=== PATIENT | female | born 1945 | race Two or more races ===

== ENCOUNTER 2018-11-15 12:38 | Inpatient (IN) | payer MEDICARE, BC ==
[~2018-11-15] VITALS: Ht 167.6 cm; Wt 101.8 kg
[2018-11-15 14:30] VITALS: BP 127/85
[2018-11-15] MEDS ORDERED: MAGNESIUM HYDROXIDE 2,400 MG/30 ML ORAL.SUSP. PO PRN (15:00)
[2018-11-15] MEDS ORDERED: METHYL SALICYLATE/MENTHOL TOPICAL OINTMENT 29GM TUBE. TP PRN (15:00)
[2018-11-15] MEDS ORDERED: MAG HYDROX/AL HYDROX/SIMETH 30 ML ORAL.SUSP PO PRN (15:00)
[2018-11-15] MEDS ORDERED: ACETAMINOPHEN 325 MG TABLET PO PRN (15:00)
[2018-11-15] MEDS ORDERED: INSU100I16 SQ (16:49)
[2018-11-15] MEDS ORDERED: BIOTIN ×2 (16:49)
[2018-11-15] MEDS ORDERED: LEVO200T5 PO (16:49)
[2018-11-15] MEDS ORDERED: LACO200T PO (16:49)
[2018-11-15] MEDS ORDERED: DICL100G18 TP (16:49)
[2018-11-15] MEDS ORDERED: OLAN5TAB5 PO (16:49)
[2018-11-15] MEDS ORDERED: ASCORBIC ACID PO (16:49)
[2018-11-15] MEDS ORDERED: LOSA50TA86 PO (16:49)
[2018-11-15] MEDS ORDERED: EZET10TA18 PO (16:49)
[2018-11-15] MEDS ORDERED: ACET325T9 PO (16:49)
[2018-11-15] MEDS ORDERED: multivitamin gummies PO (16:49)
[2018-11-15] MEDS ORDERED: LEVE500T56 PO (16:49)
[2018-11-15] MEDS ORDERED: VITAMIN E PO (16:49)
[2018-11-15] MEDS ORDERED: CHOL10003 PO (16:49)
[2018-11-15] MEDS ORDERED: MEMA5TAB14 PO (16:49)
[2018-11-15] MEDS ORDERED: OMEP40CA5 PO (16:49)
[2018-11-15] MEDS ORDERED: CYAN10005 PO (16:49)
[2018-11-15] MEDS ORDERED: DIVA125C2 PO (16:49)
[2018-11-15] MEDS ORDERED: WARF-31 PO (16:49)
[2018-11-15] MEDS ORDERED: DICLOFENAC SODIUM 1% TOPICAL GEL 100GM TUBE. TP PRN (17:00)
[2018-11-15] MEDS ORDERED: WARFARIN 5 MG TABLET. PO ONE (17:30)
[2018-11-15] MEDS ORDERED: INSULN ASP PRT/INSULIN ASPART 300 UNITS/3 ML INSULN.PEN. SQ SCH (18:30)
[2018-11-15] MEDS: INSULIN NPH/REG INSULIN 70/30 300 UNITS/3 ML INSULN.PEN. SQ SCH (19:53)
[2018-11-15] MEDS ORDERED: INSULIN REGULAR 100 UNIT/ML 3ML VIAL. SQ ONE (20:30)
[2018-11-15] MEDS ORDERED: BIOTIN SCH (21:00)
[2018-11-15] MEDS: PANTOPRAZOLE 40 MG TABLET. PO SCH (21:07)
[2018-11-15] MEDS: LACOSAMIDE 50 MG TABLET PO SCH (21:07)
[2018-11-15] MEDS: levETIRAcetam 500 MG TABLET PO SCH (21:07)
--- NOTE | 2018-11-15 22:45 | PDOC ---
Exam Note: Nicholas Note: Please also refer to the separate dictated note~for this date of service dictated separately. Discussed the patient with Nursing staff reviewed the chart.~Reviewed interim history and current functioning. Reviewed vital signs,~Labs/ Radiology~and current medications noted below. Continue current treatment with the changes noted in the dictated addendum note Assessment: Vital Signs/I&O: Vital Signs Date Time Temp Pulse Resp B/P (MAP) Pulse Ox O2 Delivery O2 Flow Rate FiO2 11/15/18 14:30 98.4 75 16 127/85 (99) 98 Labs: Laboratory Tests Test 11/15/18 16:30 11/15/18 19:44 Glucose (Fingerstick) 318 mg/dL (70-99) H 492 mg/dL (70-99) H Current Medications: Meds: Current Medications Medications (Trade) Dose Ordered Sig/Alex Route PRN Reason Start Time Stop Time Status Last Admin Dose Admin Olanzapine (ZyPREXA ZYDIS) 5 mg QHS PO 11/15/18 21:00 11/15/18 21:07 Lacosamide (Vimpat) 200 mg BID PO 11/15/18 21:00 11/15/18 21:07 Levetiracetam (Keppra) 500 mg BID PO 11/15/18 21:00 11/15/18 21:07 Pantoprazole Sodium (Protonix) 40 mg QHS PO 11/15/18 21:00 11/15/18 21:07 Warfarin Sodium (Coumadin) 5 mg 1X WARF ONCE PO 11/15/18 17:30 11/15/18 17:31 DC 11/15/18 17:54 Insulin Human Isoph/Insulin Regular (HumuLIN 70/30) 20 units BIDWMEALS SQ 11/15/18 20:00 11/15/18 19:53 Insulin Human Regular (HumuLIN R VIAL) 20 unit 1X ONCE SQ 11/15/18 20:30 11/15/18 20:36 DC 11/15/18 20:54 I have reviewed the current psychotropics carefully including drug interactions. Risk benefit ratio favors no change other than as noted in my dictated progress note. Diagnosis: Problems: (1) Anxiety disorder (2) Impulse control disorder (3) Psychosis, atypical (4) Dementia, vascular, with delusions NETTA WHEELER MD Nov 15, 2018 22:45
[2018-11-16] MEDS: LEVOTHYROXINE 100 MCG TABLET PO SCH (04:40)
[2018-11-16] MEDS: ACETAMINOPHEN 325 MG TABLET PO PRN (04:40)
[2018-11-16 05:46] VITALS: BP 124/78
[2018-11-16 07:45] LABS: BASO % 1 % (0-3); EOS # 0.3 x10^3/uL (0.0-0.7); EOS % 8 % (0-3); HEMATOCRIT 36.1 % (36.0-47.0); HEMOGLOBIN 11.9 g/dL (12.0-15.5); LYMPH # 1.5 x10^3/uL (1.0-4.8); LYMPH % 45 % (24-48); MEAN CORPUSCULAR HEMOGLOBIN 30 pg (25-35); MEAN CORPUSCULAR HGB CONC 33 g/dL (31-37); MEAN CORPUSCULAR VOLUME 92 fL (79-100); MONO # 0.3 x10^3/uL (0.0-1.1); MONO % 8 % (0-9); NEUT # 1.3 x10^3uL (1.8-7.7); NEUT % 39 % (31-73); PLATELET COUNT 169 x10^3/uL (140-400); RED BLOOD COUNT 3.91 x10^6/uL (3.50-5.40); RED CELL DISTRIBUTION WIDTH 17.6 % (11.5-14.5); WHITE BLOOD COUNT 3.3 x10^3/uL (4.0-11.0)
[2018-11-16 08:01] LABS: ALBUMIN 3.5 g/dL (3.4-5.0); ALBUMIN/GLOBULIN RATIO 0.9 (1.0-1.7); CALCIUM 9.1 mg/dL (8.5-10.1); CREATININE 1.1 mg/dL (0.6-1.0); MAGNESIUM 1.8 mg/dL (1.8-2.4); POTASSIUM 3.9 mmol/L (3.5-5.1); TOTAL BILIRUBIN 0.5 mg/dL (0.2-1.0); TOTAL PROTEIN 7.3 g/dL (6.4-8.2)
[2018-11-16 08:12] LABS: VAL ACID 4 mcg/mL (50-100)
[2018-11-16] MEDS: MULTIVITAMIN with MINERAL TABLET. PO SCH (08:12)
[2018-11-16] MEDS: EZETIMIBE 10 MG TABLET PO SCH (08:12)
[2018-11-16] MEDS: LACOSAMIDE 50 MG TABLET PO SCH ×2 (08:12→20:19)
[2018-11-16] MEDS: CHOLECALCIFEROL (VITAMIN D3) 1,000 UNIT TABLET PO SCH (08:12)
[2018-11-16] MEDS: LOSARTAN 50 MG TABLET. PO SCH (08:14)
[2018-11-16] MEDS: levETIRAcetam 500 MG TABLET PO SCH ×2 (08:14→20:19)
[2018-11-16] MEDS: MEMANTINE 5 MG TABLET. PO SCH (08:14)
[2018-11-16] MEDS: CYANOCOBALAMIN (VITAMIN B-12) 1,000 MCG TABLET. PO SCH (08:14)
[2018-11-16] MEDS: INSULIN NPH/REG INSULIN 70/30 300 UNITS/3 ML INSULN.PEN. SQ SCH ×2 (08:15→17:08)
[2018-11-16] MEDS ORDERED: BIOTIN SCH (09:00)
[2018-11-16] MEDS ORDERED: ASCORBIC ACID PO SCH (09:00)
[2018-11-16] MEDS ORDERED: VITAMIN E PO SCH (09:00)
[2018-11-16] MEDS ORDERED: DIVALPROEX 125 MG CAP.SPRINK PO SCH (09:00)
[2018-11-16 10:33] LABS: THYROID STIM HORMONE (TSH) 6.609 uIU/mL (0.358-3.740)
[2018-11-16 13:09] LABS: THYROXINE 9.7 ug/dL (4.5-12.0)
[2018-11-16 14:37] LABS: BACTERIA,URINE 0 /HPF (0-FEW); BILIRUBIN,URINE NEG (NEG); CLARITY,URINE CLEAR; COLOR,URINE YELLOW; GLUCOSE,URINE 100 mg/dL (NEG); NITRITE,URINE NEG (NEG); RBC,URINE 0 /HPF (0-2); SQUAMOUS EPITHELIAL CELL,UR FEW /LPF; UROBILINOGEN,URINE 0.2 mg/dL (0.2 mg/dL); WBC,URINE OCC /HPF (0-4)
[2018-11-16 15:49] VITALS: BP 162/89
[2018-11-16] MEDS ORDERED: WARFARIN 7.5 MG TABLET. PO ONE (16:00)
[2018-11-16] MEDS: PANTOPRAZOLE 40 MG TABLET. PO SCH (20:20)
--- NOTE | 2018-11-16 21:22 | CONS ---
DATE OF CONSULTATION: 11/16/2018 ATTENDING PHYSICIAN: Vincent Mancia MD REASON FOR CONSULTATION: We are asked to see this patient on medical consultation. HISTORY OF PRESENT ILLNESS: The patient is a 73-year-old female transferred here yesterday from [facility]. She had been living at [facility]. She had fallen. She had mental status changes. She has underlying dementia. She had been on Coumadin. Her INR was elevated to 3.4. There is a longstanding history of dementia. She is on Coumadin for factor V Leiden deficiency. When I saw her today, she was reasonable. She had no acute distress. I reviewed her medications. She could not give me much more history. Most of the history is obtained from charts from [facility]. PAST MEDICAL HISTORY: Significant for asthma, major depression, type 2 diabetes mellitus, factor V Leiden deficiency with long-term anticoagulation, hearing loss, chickenpox, remote history of DVT, pulmonary embolus, hypertension, hyperlipidemia, hypothyroidism, noncompliance of medications, obstructive sleep apnea, peptic ulcer disease, seizure disorder, sigmoid diverticulosis, old stroke. PAST SURGICAL HISTORY: Includes nasal septal surgery repair, patellar surgery, cholecystectomy, rotator cuff repair, tubal ligation, and partial thyroidectomy. FAMILY HISTORY: Her sister has dementia, another sister had type 2 diabetes and heart disease. Mom and dad also had heart failure. Hypertension in brother, mother, and 2 sisters. SOCIAL HISTORY: She quit smoking 35 years ago. She does not use any alcohol at this time. CURRENT MEDICATIONS: Reviewed. She is scheduled for Tylenol, Mylanta, vitamin B12, Voltaren, Depakote, Zetia, Vimpat, Keppra, Synthroid, losartan, milk of magnesia, Namenda, multivitamin, Zyprexa, Protonix, vitamin D, and Coumadin. ALLERGIES: Multiple including MORPHINE, CRANBERRY GRAPEFRUIT EXTRACT, LATEX, LISINOPRIL CAUSING A COUGH, NICKEL, ZOCOR, LANTUS INSULIN and ACTOS, exact etiology is unclear. REVIEW OF SYSTEMS: Significant for the reports from [facility]. She denied any fevers, chills, or sweats. All other systems reviewed and determined to be negative. PHYSICAL EXAMINATION: GENERAL: When I saw her, this is a pleasant elderly female. She has bilateral orbital ecchymoses from recent trauma. VITAL SIGNS: Showed that she was afebrile. Her blood pressure from admission was 127/85, pulse 75 and regular. She was afebrile. HEENT: Head is without trauma. Pupils are reactive. Sclerae are nonicteric. There is bilateral orbital ecchymoses. There is also a small hematoma mid forehead. NECK: Supple. No bruits identified. LUNGS: Otherwise clear. CARDIOVASCULAR: Showed regular heart tones. No gallops, no murmurs. Peripheral pulses are palpable and full. ABDOMEN: Obese, protuberant. No organomegaly. Bowel sounds are hypoactive. EXTREMITIES: Showed no cyanosis, 2+ edema. NEUROLOGIC: Speech is fluent, focally intact. No deficits. PERTINENT LABORATORY DATA: Nonfasting blood sugar was recorded at 152. Creatinine is 1.1 mg/dL. Electrolytes are within range. Her hemoglobin was 11.9 g/dL with white count of 3300. Her INR measured this morning was therapeutic at 1.9. ASSESSMENT: 1. This 73-year-old female has underlying dementia. 2. Aggressive behavioral changes, which prompted the transfer here. 3. Recent fall with bilateral orbital ecchymoses. She is on chronic Coumadin therapy. 4. Factor V Leiden deficiency with previous blood clots in the legs and lungs. 5. Type 2 diabetes. 6. Essential hypertension. RECOMMENDATIONS: 1. The patient is stable from medical standpoint. 2. I would continue her Coumadin dosage with close monitoring of the INR. 3. I reviewed her medications. I would recommend that we discontinue the Voltaren given the propensity for internal bleeding while on Coumadin. 4. Continue other home meds including her seizure meds. 5. We should gladly follow along this nice patient during the course of her hospitalization. Thank you again for asking me to see this patient for medical consultation. SARAH HOLLIDAY MD DR: ITZ/allan JOB#: [id number] / [id number] JYOTI Palma MD
--- NOTE | 2018-11-16 22:55 | PDOC ---
Exam Note: Nicholas Note: Please also refer to the separate dictated note~for this date of service dictated separately.~Patient seen individually. Discussed the patient with Nursing staff reviewed the chart.~Reviewed interim history and current functioning. Reviewed vital signs,~Labs/ Radiology~and current medications noted below. Continue current treatment with the changes noted in the dictated addendum note Assessment: Vital Signs/I&O: Vital Signs Date Time Temp Pulse Resp B/P (MAP) Pulse Ox O2 Delivery O2 Flow Rate FiO2 11/16/18 15:49 97.9 68 16 162/89 (113) 97 11/16/18 05:46 Room Air I & O 11/15/18 11/15/18 11/16/18 14:59 22:59 06:59 Intake Total 120 ml 120 ml Balance 120 ml 120 ml Labs: Laboratory Tests Test 11/15/18 23:31 11/16/18 07:24 11/16/18 07:27 11/16/18 09:15 Glucose (Fingerstick) 289 mg/dL (70-99) H 152 mg/dL (70-99) H White Blood Count 3.3 x10^3/uL (4.0-11.0) L Red Blood Count 3.91 x10^6/uL (3.50-5.40) Hemoglobin 11.9 g/dL (12.0-15.5) L Hematocrit 36.1 % (36.0-47.0) Mean Corpuscular Volume 92 fL (79-100) Mean Corpuscular Hemoglobin 30 pg (25-35) Mean Corpuscular Hemoglobin Concent 33 g/dL (31-37) Red Cell Distribution Width 17.6 % (11.5-14.5) H Platelet Count 169 x10^3/uL (140-400) Neutrophils (%) (Auto) 39 % (31-73) Lymphocytes (%) (Auto) 45 % (24-48) Monocytes (%) (Auto) 8 % (0-9) Eosinophils (%) (Auto) 8 % (0-3) H Basophils (%) (Auto) 1 % (0-3) Neutrophils # (Auto) 1.3 x10^3uL (1.8-7.7) L Lymphocytes # (Auto) 1.5 x10^3/uL (1.0-4.8) Monocytes # (Auto) 0.3 x10^3/uL (0.0-1.1) Eosinophils # (Auto) 0.3 x10^3/uL (0.0-0.7) Basophils # (Auto) 0.0 x10^3/uL (0.0-0.2) Sodium Level 140 mmol/L (136-145) Potassium Level 3.9 mmol/L (3.5-5.1) Chloride Level 102 mmol/L (98-107) Carbon Dioxide Level 32 mmol/L (21-32) Anion Gap 6 (6-14) Blood Urea Nitrogen 18 mg/dL (7-20) Creatinine 1.1 mg/dL (0.6-1.0) H Estimated GFR (Cockcroft-Gault) 49.0 BUN/Creatinine Ratio 16 (6-20) Glucose Level 148 mg/dL (70-99) H Calcium Level 9.1 mg/dL (8.5-10.1) Magnesium Level 1.8 mg/dL (1.8-2.4) Iron Level 73 ug/dL (50-170) Total Iron Binding Capacity 258 ug/dL (250-450) Iron Saturation 28 % (15-34) Total Bilirubin 0.5 mg/dL (0.2-1.0) Aspartate Amino Transferase (AST) 16 U/L (15-37) Alanine Aminotransferase (ALT) 21 U/L (14-59) Alkaline Phosphatase 81 U/L (46-116) Total Protein 7.3 g/dL (6.4-8.2) Albumin 3.5 g/dL (3.4-5.0) Albumin/Globulin Ratio 0.9 (1.0-1.7) L Triglycerides Level 61 mg/dL (0-150) Cholesterol Level 142 mg/dL (0-200) LDL Cholesterol, Calculated 85 mg/dL (0-100) VLDL Cholesterol, Calculated 12 mg/dL (0-40) Non-HDL Cholesterol Calculated 97 mg/dL (0-129) HDL Cholesterol 45 mg/dL (40-60) Cholesterol/HDL Ratio 3.0 Thyroid Stimulating Hormone (TSH) 6.609 uIU/mL (0.358-3.740) Thyroxine (T4) 9.7 ug/dL (4.5-12.0) Total Triiodothyronine (TT3) 81 ng/dL (71-180) Valproic Acid Level 4 mcg/mL (50-100) L Valproic Acid Last Dose Date 11/15/2018 Valproic Acid Last Dose Time 0900 Prothrombin Time 18.6 SEC (9.4-11.4) H Prothrombin Time INR 1.9 (0.9-1.1) H Test 11/16/18 12:09 11/16/18 13:45 11/16/18 16:42 11/16/18 19:38 Glucose (Fingerstick) 183 mg/dL (70-99) H 272 mg/dL (70-99) H 278 mg/dL (70-99) H Urine Collection Type Void Urine Color Yellow Urine Clarity Clear Urine pH 5.5 Urine Specific Arc[place] 1.010 Urine Protein Neg (NEG-TRACE) Urine Glucose (UA) 100 mg/dL (NEG) Urine Ketones (Stick) Neg mg/dL (NEG) Urine Blood Neg (NEG) Urine Nitrite Neg (NEG) Urine Bilirubin Neg (NEG) Urine Urobilinogen Dipstick 0.2 mg/dL (0.2 mg/dL) Urine Leukocyte Esterase Neg (NEG) Urine RBC 0 /HPF (0-2) Urine WBC Occ /HPF (0-4) Urine Squamous Epithelial Cells Few /LPF Urine Bacteria 0 /HPF (0-FEW) Current Medications: Meds: Current Medications Medications (Trade) Dose Ordered Sig/Alex Route PRN Reason Start Time Stop Time Status Last Admin Dose Admin Vitamin D (Vitamin D3) 1,000 unit DAILY PO 11/16/18 09:00 11/16/18 08:12 Cyanocobalamin (Vitamin B-12) 1,000 mcg DAILY PO 11/16/18 09:00 11/16/18 08:14 Losartan Potassium (Cozaar) 50 mg DAILY PO 11/16/18 09:00 11/16/18 08:14 Divalproex Sodium (Depakote Sprinkles) 125 mg DAILY PO 11/16/18 09:00 11/16/18 22:26 DC 11/16/18 08:13 EZETIMIBE (Zetia) 10 mg DAILY PO 11/16/18 09:00 11/16/18 08:12 Levothyroxine Sodium (Synthroid) 200 mcg DAILY06 PO 11/16/18 06:00 11/16/18 04:40 Memantine (Namenda) 5 mg DAILY PO 11/16/18 09:00 11/16/18 08:14 Multivitamins/ Calcium (Thera-M Plus) 2 tab DAILY PO 11/16/18 09:00 11/16/18 08:12 Warfarin Sodium (Coumadin) 7.5 mg 1X WARF ONCE PO 11/16/18 16:00 11/16/18 16:01 DC 11/16/18 17:07 I have reviewed the current psychotropics carefully including drug interactions. Risk benefit ratio favors no change other than as noted in my dictated progress note. Diagnosis: Problems: (1) Anxiety disorder (2) Impulse control disorder (3) Psychosis, atypical (4) Dementia, vascular, with delusions NETTA WHEELER MD Nov 16, 2018 22:55
[2018-11-17 05:49] VITALS: BP 102/58
[2018-11-17] MEDS: LEVOTHYROXINE 100 MCG TABLET PO SCH (06:07)
[2018-11-17] MEDS: INSULIN NPH/REG INSULIN 70/30 300 UNITS/3 ML INSULN.PEN. SQ SCH ×2 (07:44→18:17)
[2018-11-17] MEDS: levETIRAcetam 500 MG TABLET PO SCH ×2 (07:45→19:54)
[2018-11-17] MEDS: CHOLECALCIFEROL (VITAMIN D3) 1,000 UNIT TABLET PO SCH (07:45)
[2018-11-17] MEDS: MULTIVITAMIN with MINERAL TABLET. PO SCH (07:45)
[2018-11-17] MEDS: LOSARTAN 50 MG TABLET. PO SCH (07:45)
[2018-11-17] MEDS: MEMANTINE 5 MG TABLET. PO SCH (07:45)
[2018-11-17] MEDS: EZETIMIBE 10 MG TABLET PO SCH (07:45)
[2018-11-17] MEDS: CYANOCOBALAMIN (VITAMIN B-12) 1,000 MCG TABLET. PO SCH (07:45)
[2018-11-17] MEDS: DIVALPROEX 125 MG CAP.SPRINK PO SCH ×2 (07:49→19:54)
[2018-11-17] MEDS: LACOSAMIDE 50 MG TABLET PO SCH ×2 (07:49→19:54)
--- NOTE | 2018-11-17 15:12 | HP ---
ADMIT DATE: 11/15/2018 PSYCHIATRIC ADMISSION HISTORY/EVALUATION This late entry 11/15/2018 covers elements not covered in my initial note. I met with the patient evening of 11/15/2018 for this evaluation. IDENTIFYING DATA: The patient is a 73-year-old female referred to us from [facility] in [place], [place], after she presented there from [facility] on account of increased agitation, aggression, having visual and auditory hallucinations, significant sleep disturbance and delusions. She believed that people's heads were being cut off and put on plate. She was threatening to cut her 's throat. She was striking out at staff and aggressive. Staff had to call the police for assistance due to her dangerous, out of control, unmanageable behaviors and she was sent to the Emergency Room. Adjustments had been made in her psychotropics, all of which had failed outpatient. CHIEF COMPLAINT: "Yes they are cutting off the heads. I heard him talking about it. No, it is not in my mind. You can hear it as well." The patient is quite suspicious, talking in a low tone wanting to make sure no one else heard her, since they would conspire against her as a consequence of this. Quite paranoid, psychotic. HISTORY OF PRESENT ILLNESS: The patient has a history of worsening psychotic symptoms with the above auditory and questionable visual hallucinations, sleep and appetite disturbance. Behaviors have been unmanageable, dangerous. She does have a history of mood swings, but no clear past diagnosis of schizoaffective disorder or schizophrenia. She has had some short-term memory deficits as well, but the psychosis has been prominent. PAST PSYCHIATRIC HISTORY: As above. MEDICAL HISTORY: Positive for asthma, type 2 diabetes mellitus, factor V Leiden mutation, hearing loss, left ear, hypertension, hyperlipidemia, hypothyroidism, sleep apnea, peptic ulcer disease, seizure disorder, sigmoid diverticulosis, status post cerebrovascular accident, history of chickenpox, history of deep vein thrombosis and pulmonary embolism, gallbladder removal, foot surgery, nasal septum surgery, patellar surgery, rotator cuff surgery, thyroidectomy, tonsillectomy, tubal ligation. DIET: Diabetic diet. ALLERGIES: MORPHINE, CRANBERRY, GRAPEFRUIT, LATEX, LISINOPRIL, NICKEL, LAUNDRY, DETERGENTS, PERFUMES, SIMVASTATIN, LANTUS, PIOGLITAZONE. CODE STATUS: Full code. Takes medications whole. Ambulates usually in wheelchair with assistance and has had frequent falls. CURRENT PSYCHOTROPICS: Depakote 125 mg daily sprinkles, Zyprexa 5 mg at bedtime, lacosamide 200 mg b.i.d., Keppra 500 mg b.i.d., Namenda 5 mg daily, recently added. FAMILY HISTORY: Noncontributory. SOCIAL HISTORY: No history of alcohol, drug abuse, physical, sexual or elder abuse. She is not known to be a perpetrator. REACTION TO HOSPITALIZATION: The patient accepting of it. ASSETS: Supportive family, stable living at the custodial. Family is looking for long-term placement. MENTAL STATUS EXAMINATION: The patient was seen individually evening of 11/15/2018. She is oriented to herself and situation. Speech is low in volume, coherent, quite paranoid, suspicious. Abstraction fair, computation impaired, language function intact, attention span short. She is quite distractible. No active suicidal or homicidal ideation. She remains quite delusional, paranoid during our lengthy interview. LABORATORY DATA: Reviewed. IMPRESSION: Psychotic disorder, unspecified versus psychosis due to general medical condition consequent to her seizures, status post cerebrovascular accident. Mild cognitive impairment versus major neurocognitive disorder, vascular with delusion, depression; anxiety disorder, unspecified; impulse control disorder, unspecified. Rest as above. PLAN: Admit to geropsychiatry Unit at [facility]. I will see the patient daily individually from a psychiatric standpoint. Medical followup with Dr. Trevino/Dr. Navarrete. Continue current psychotropics. Check a valproic acid level. If it is subtherapeutic, adjust Depakote to reach therapeutic level. May consider changing Zyprexa to Risperdal, which should be more efficacious for her psychosis. May have a CT head done and may consider Neurology consult, Dr. Spencer for her seizure disorder to make sure this is adequately controlled. Estimated length of stay, 10-12 days. DISCHARGE PLANS: Back to custodial when stable. MAN Rebecca WHEELER MD DR: AMARILIS/allan JOB#: [id number] / [id number]
[2018-11-17 15:32] VITALS: BP 138/85
[2018-11-17] MEDS ORDERED: WARFARIN 7.5 MG TABLET. PO ONE (16:00)
[2018-11-17] MEDS: PANTOPRAZOLE 40 MG TABLET. PO SCH (19:54)
[2018-11-17] MEDS: risperiDONE 0.25 MG TABLET. PO SCH (19:55)
--- NOTE | 2018-11-17 20:59 | PN ---
DATE: 11/16/2018 PSYCHIATRIC PROGRESS NOTE This late entry 11/16/2018, covers elements not covered in my initial note. SUBJECTIVE: I met with the patient in the evening. The patient slept 4-1/2 hours previous night. Previous night, she was talking about people chopping off the head of others. She remains anxious, restless, extremely paranoid, as I met with her. REVIEW OF SYSTEMS: Ambulation impaired, in wheelchair. No CV, , pulmonary, eye, ENT system symptoms on review. MENTAL STATUS EXAM: Oriented to herself and situation. Speech has some latency, coherent. I met with her in her room. Abstraction fair, computation impaired, language function intact, attention span short. IMPRESSION: Psychotic disorder, unspecified versus psychosis due to general medical condition, major neurocognitive disorder, vascular with delusion, depression; anxiety disorder, unspecified. Rest unchanged from admission. PLAN: Change Zyprexa to Risperdal 0.25 mg p.o. at bedtime. Valproic acid level subtherapeutic at 4. We will increase Depakote Sprinkles from 125 mg daily to 250 mg twice a day. Follow labs, CBC, CMP, valproic acid level in 3 days. Adjust to reach therapeutic level. NETTA WHEELER MD DR: AMARILIS/allan JOB#: [id number] / [id number]
--- NOTE | 2018-11-17 22:23 | PDOC ---
Exam Note: Nicholas Note: Please also refer to the separate dictated note~for this date of service dictated separately.~Patient seen individually. Discussed the patient with Nursing staff reviewed the chart.~Reviewed interim history and current functioning. Reviewed vital signs,~Labs/ Radiology~and current medications noted below. Continue current treatment with the changes noted in the dictated addendum note Assessment: Vital Signs/I&O: Vital Signs Date Time Temp Pulse Resp B/P (MAP) Pulse Ox O2 Delivery O2 Flow Rate FiO2 11/17/18 15:32 98.5 68 18 138/85 (102) 95 11/16/18 05:46 Room Air I & O 11/16/18 11/16/18 11/17/18 15:00 23:00 07:00 Intake Total 1080 ml 240 ml 240 ml Balance 1080 ml 240 ml 240 ml Labs: Laboratory Tests Test 11/17/18 06:37 11/17/18 07:09 11/17/18 11:49 11/17/18 16:53 Prothrombin Time 18.8 SEC (9.4-11.4) H Prothrombin Time INR 1.9 (0.9-1.1) H Glucose (Fingerstick) 210 mg/dL (70-99) H 207 mg/dL (70-99) H 283 mg/dL (70-99) H Test 11/17/18 20:16 Glucose (Fingerstick) 290 mg/dL (70-99) H Current Medications: Meds: Current Medications Medications (Trade) Dose Ordered Sig/Alex Route PRN Reason Start Time Stop Time Status Last Admin Dose Admin Divalproex Sodium (Depakote Sprinkles) 250 mg BID PO 11/17/18 09:00 11/17/18 19:54 Risperidone (RisperDAL) 0.25 mg QHS PO 11/17/18 21:00 11/17/18 19:55 Warfarin Sodium (Coumadin) 7.5 mg 1X WARF ONCE PO 11/17/18 16:00 11/17/18 16:01 DC 11/17/18 16:01 I have reviewed the current psychotropics carefully including drug interactions. Risk benefit ratio favors no change other than as noted in my dictated progress note. Diagnosis: Problems: (1) Anxiety disorder (2) Impulse control disorder (3) Psychosis, atypical (4) Dementia, vascular, with delusions NETTA WHEELER MD Nov 17, 2018 22:23
[2018-11-17] MEDS: ACETAMINOPHEN 325 MG TABLET PO PRN (22:24)
[2018-11-18] MEDS: LEVOTHYROXINE 100 MCG TABLET PO SCH (05:45)
[2018-11-18 06:09] VITALS: BP 133/81
--- NOTE | 2018-11-18 06:50 | EKG ---
[address] [address] Test Date: 2018-11-15 Test Time: 17:14:49 Pat Name: CHRISTOPHE TOVAR Department: Room: [address] [place] [address] Gender: F Slitter Operator: : 1945 Requested By: NETTA WHEELER Order Number: [id number] Reading MD: Measurements Intervals [place] Rate: 74 P: 37 GA: 138 QRS: 26 QRSD: 82 T: 34 QT: 376 QTc: 418 Interpretive Statements SINUS RHYTHM NORMAL ECG RI6.02 No previous ECG available for comparison
[2018-11-18] MEDS: MULTIVITAMIN with MINERAL TABLET. PO SCH (08:26)
[2018-11-18] MEDS: EZETIMIBE 10 MG TABLET PO SCH (08:27)
[2018-11-18] MEDS: CHOLECALCIFEROL (VITAMIN D3) 1,000 UNIT TABLET PO SCH (08:27)
[2018-11-18] MEDS: DIVALPROEX 125 MG CAP.SPRINK PO SCH ×2 (08:27→19:32)
[2018-11-18] MEDS: LOSARTAN 50 MG TABLET. PO SCH (08:27)
[2018-11-18] MEDS: CYANOCOBALAMIN (VITAMIN B-12) 1,000 MCG TABLET. PO SCH (08:27)
[2018-11-18] MEDS: levETIRAcetam 500 MG TABLET PO SCH ×2 (08:28→19:32)
[2018-11-18] MEDS: MEMANTINE 5 MG TABLET. PO SCH (08:28)
[2018-11-18] MEDS: LACOSAMIDE 50 MG TABLET PO SCH ×2 (08:29→19:33)
[2018-11-18] MEDS: INSULIN NPH/REG INSULIN 70/30 300 UNITS/3 ML INSULN.PEN. SQ SCH ×2 (08:46→17:09)
[2018-11-18 16:09] VITALS: BP 151/79
[2018-11-18] MEDS: WARFARIN 7.5 MG TABLET. PO SCH (16:13)
[2018-11-18] MEDS: risperiDONE 0.25 MG TABLET. PO SCH (19:32)
[2018-11-18] MEDS: PANTOPRAZOLE 40 MG TABLET. PO SCH (19:32)
--- NOTE | 2018-11-18 22:38 | PDOC ---
Exam Note: Nicholas Note: Please also refer to the separate dictated note~for this date of service dictated separately.~Patient seen individually. Discussed the patient with Nursing staff reviewed the chart.~Reviewed interim history and current functioning. Reviewed vital signs,~Labs/ Radiology~and current medications noted below. Continue current treatment with the changes noted in the dictated addendum note Assessment: Vital Signs/I&O: Vital Signs Date Time Temp Pulse Resp B/P (MAP) Pulse Ox O2 Delivery O2 Flow Rate FiO2 11/18/18 16:09 97.6 81 18 151/79 (103) 98 11/16/18 05:46 Room Air I & O 11/17/18 11/17/18 11/18/18 14:59 22:59 06:59 Intake Total 840 ml 320 ml 360 ml Balance 840 ml 320 ml 360 ml Labs: Laboratory Tests Test 11/18/18 07:32 11/18/18 08:53 11/18/18 12:18 11/18/18 16:36 Glucose (Fingerstick) 175 mg/dL (70-99) H 206 mg/dL (70-99) H 288 mg/dL (70-99) H Prothrombin Time 18.5 SEC (9.4-11.4) H Prothrombin Time INR 1.9 (0.9-1.1) H Test 11/18/18 19:47 Glucose (Fingerstick) 358 mg/dL (70-99) H Current Medications: Meds: Current Medications Medications (Trade) Dose Ordered Sig/Alex Route PRN Reason Start Time Stop Time Status Last Admin Dose Admin Warfarin Sodium (Coumadin) 7.5 mg DAILY16 PO 11/18/18 16:00 11/18/18 16:13 I have reviewed the current psychotropics carefully including drug interactions. Risk benefit ratio favors no change other than as noted in my dictated progress note. Diagnosis: Problems: (1) Anxiety disorder (2) Impulse control disorder (3) Psychosis, atypical (4) Dementia, vascular, with delusions NETTA WHEELER MD Nov 18, 2018 22:38
--- NOTE | 2018-11-19 01:07 | PN ---
DATE: 11/17/2018 PSYCHIATRIC PROGRESS NOTE This late entry 11/17/2018 covers elements not covered in my initial note. SUBJECTIVE: I met with the patient in the evening at some length. The patient slept 7 hours previous night, was quite delusional, psychotic at night about people's heads being cuff off, but during the day on 11/17/2018, this is better. We will request her past psychiatric records from [facility]. REVIEW OF SYSTEMS: No CV, , pulmonary, eye, ENT system symptoms on review. MENTAL STATUS EXAM: Oriented to herself and situation. Speech has some latency, coherent. Abstraction fair, computation impaired, language function intact, attention span short. She is less paranoid, delusional effects, specifically and pointedly questioned her at the evening of 11/17/2018. LABORATORY DATA: Reviewed. IMPRESSION: Psychotic disorder, unspecified, rule out major neurocognitive disorder, Alzheimer, vascular with delusions. Rest unchanged. PLAN: Get results of CT head done at [facility]. Continue Depakote. Adjust to reach therapeutic level and repeat labs level has been ordered. Zyprexa has been changed to Risperdal. Maintain the rest of her psychotropics for now. NETTA WHEELER MD DR: AMARILIS/allan JOB#: [id number] / [id number]
[2018-11-19 05:59] VITALS: BP 123/79
[2018-11-19] MEDS: LEVOTHYROXINE 100 MCG TABLET PO SCH (06:04)
[2018-11-19] MEDS: MEMANTINE 5 MG TABLET. PO SCH (08:28)
[2018-11-19] MEDS: levETIRAcetam 500 MG TABLET PO SCH ×2 (08:28→19:38)
[2018-11-19] MEDS: MULTIVITAMIN with MINERAL TABLET. PO SCH (08:28)
[2018-11-19] MEDS: EZETIMIBE 10 MG TABLET PO SCH (08:28)
[2018-11-19] MEDS: DIVALPROEX 125 MG CAP.SPRINK PO SCH ×2 (08:28→19:37)
[2018-11-19] MEDS: CHOLECALCIFEROL (VITAMIN D3) 1,000 UNIT TABLET PO SCH (08:28)
[2018-11-19] MEDS: CYANOCOBALAMIN (VITAMIN B-12) 1,000 MCG TABLET. PO SCH (08:29)
[2018-11-19] MEDS: LOSARTAN 50 MG TABLET. PO SCH (08:29)
[2018-11-19] MEDS: LACOSAMIDE 50 MG TABLET PO SCH ×2 (08:30→19:40)
[2018-11-19] MEDS: INSULIN NPH/REG INSULIN 70/30 300 UNITS/3 ML INSULN.PEN. SQ SCH ×2 (08:32→17:16)
--- NOTE | 2018-11-19 14:08 | PN ---
DATE: 11/18/2018 PSYCHIATRIC PROGRESS NOTE This late entry 11/18/2018 covers elements not covered in my initial note. SUBJECTIVE: I met with the patient in the evening. The patient slept 8-1/4 hours previous night. Her bruises, periorbital, seemed to be gradually improving. She is alert, oriented, compliant with medications. As I met with her individually at length, she is still paranoid, believes people's heads are being chopped off. When I shared with her that looked into it and this was not corroborated, she was quite adamant that no one would share the secrets with me. REVIEW OF SYSTEMS: Ambulation impaired, in wheelchair. No CV, , pulmonary, eye system symptoms on review. MENTAL STATUS EXAM: Oriented to herself and situation. Speech is coherent, rapid at times. Abstraction fair, computation impaired, language function intact, attention span short. Mood and affect somewhat anxious, labile, remains quite psychotic. LABORATORY DATA: Reviewed. IMPRESSION: Psychotic disorder, unspecified versus bipolar, mixed with psychotic features, mild cognitive impairment versus major neurocognitive disorder, Alzheimer, vascular with delusion, depression. Rest unchanged. PLAN: Continue current psychotropics. Check labs level on the Depakote, adjust to reach therapeutic level. Maintain rest of the treatment for her seizure disorder. Neurology consult with Dr. Spencer has been requested. MAN Rebecca WHEELER MD DR: AMARILIS/allan JOB#: [id number] / [id number]
[2018-11-19 15:48] VITALS: BP 140/85
[2018-11-19] MEDS: WARFARIN 7.5 MG TABLET. PO SCH (16:18)
[2018-11-19] MEDS: PANTOPRAZOLE 40 MG TABLET. PO SCH (19:38)
[2018-11-19] MEDS: risperiDONE 0.5 MG TABLET. PO SCH (19:39)
--- NOTE | 2018-11-19 22:19 | PDOC ---
Exam Note: Nicholas Note: Please also refer to the separate dictated note~for this date of service dictated separately.~Patient seen individually. Discussed the patient with Nursing staff reviewed the chart.~Reviewed interim history and current functioning. Reviewed vital signs,~Labs/ Radiology~and current medications noted below. Continue current treatment with the changes noted in the dictated addendum note Assessment: Vital Signs/I&O: Vital Signs Date Time Temp Pulse Resp B/P (MAP) Pulse Ox O2 Delivery O2 Flow Rate FiO2 11/19/18 15:48 98.7 88 20 140/85 (103) 97 11/16/18 05:46 Room Air I & O 11/18/18 11/18/18 11/19/18 14:59 22:59 06:59 Intake Total 720 ml 240 ml 120 ml Balance 720 ml 240 ml 120 ml Labs: Laboratory Tests Test 11/19/18 07:45 11/19/18 08:03 11/19/18 12:18 11/19/18 16:48 Prothrombin Time 19.1 SEC (9.4-11.4) H Prothrombin Time INR 2.0 (0.9-1.1) H Glucose (Fingerstick) 199 mg/dL (70-99) H 307 mg/dL (70-99) H 221 mg/dL (70-99) H Test 11/19/18 19:29 Glucose (Fingerstick) 193 mg/dL (70-99) H Current Medications: Meds: Current Medications Medications (Trade) Dose Ordered Sig/Alex Route PRN Reason Start Time Stop Time Status Last Admin Dose Admin Insulin Human Isoph/Insulin Regular (HumuLIN 70/30) 25 units BIDWMEALS SQ 11/19/18 08:00 11/19/18 17:16 Risperidone (RisperDAL) 0.5 mg QHS PO 11/19/18 21:00 11/19/18 19:39 I have reviewed the current psychotropics carefully including drug interactions. Risk benefit ratio favors no change other than as noted in my dictated progress note. Diagnosis: Problems: (1) Anxiety disorder (2) Impulse control disorder (3) Psychosis, atypical (4) Dementia, vascular, with delusions NETTA WHEELER MD Nov 19, 2018 22:19
[2018-11-20] MEDS: LEVOTHYROXINE 100 MCG TABLET PO SCH (06:06)
[2018-11-20 06:09] VITALS: BP 146/82
[2018-11-20 07:08] LABS: BASO % 1 % (0-3); EOS # 0.2 x10^3/uL (0.0-0.7); EOS % 6 % (0-3); HEMATOCRIT 35.3 % (36.0-47.0); HEMOGLOBIN 11.7 g/dL (12.0-15.5); LYMPH # 1.5 x10^3/uL (1.0-4.8); LYMPH % 48 % (24-48); MEAN CORPUSCULAR HEMOGLOBIN 30 pg (25-35); MEAN CORPUSCULAR HGB CONC 33 g/dL (31-37); MEAN CORPUSCULAR VOLUME 91 fL (79-100); MONO # 0.2 x10^3/uL (0.0-1.1); MONO % 7 % (0-9); NEUT # 1.2 x10^3uL (1.8-7.7); NEUT % 38 % (31-73); PLATELET COUNT 177 x10^3/uL (140-400); RED BLOOD COUNT 3.86 x10^6/uL (3.50-5.40); RED CELL DISTRIBUTION WIDTH 17.7 % (11.5-14.5); WHITE BLOOD COUNT 3.1 x10^3/uL (4.0-11.0)
[2018-11-20 07:30] LABS: ALBUMIN 3.3 g/dL (3.4-5.0); ALBUMIN/GLOBULIN RATIO 0.9 (1.0-1.7); ALK PHOS 67 U/L (46-116); ALT (SGPT) 19 U/L (14-59); ANION GAP 8 (6-14); AST (SGOT) 16 U/L (15-37); BLOOD UREA NITROGEN 13 mg/dL (7-20); BUN/CREATININE RATIO 13 (6-20); CALCIUM 8.8 mg/dL (8.5-10.1); CARBON DIOXIDE 29 mmol/L (21-32); CHLORIDE 104 mmol/L (98-107); GFR 54.7; GLUCOSE 150 mg/dL (70-99); POTASSIUM 4.1 mmol/L (3.5-5.1); SODIUM 141 mmol/L (136-145); TOTAL BILIRUBIN 0.5 mg/dL (0.2-1.0)
[2018-11-20 07:35] LABS: VAL ACID 36 mcg/mL (50-100)
[2018-11-20] MEDS: INSULIN NPH/REG INSULIN 70/30 300 UNITS/3 ML INSULN.PEN. SQ SCH ×2 (07:42→17:07)
[2018-11-20] MEDS: CYANOCOBALAMIN (VITAMIN B-12) 1,000 MCG TABLET. PO SCH (08:25)
[2018-11-20] MEDS: MULTIVITAMIN with MINERAL TABLET. PO SCH (08:25)
[2018-11-20] MEDS: LOSARTAN 50 MG TABLET. PO SCH (08:25)
[2018-11-20] MEDS: levETIRAcetam 500 MG TABLET PO SCH ×2 (08:25→19:23)
[2018-11-20] MEDS: CHOLECALCIFEROL (VITAMIN D3) 1,000 UNIT TABLET PO SCH (08:25)
[2018-11-20] MEDS: MEMANTINE 5 MG TABLET. PO SCH (08:25)
[2018-11-20] MEDS: DIVALPROEX 125 MG CAP.SPRINK PO SCH ×2 (08:25→19:23)
[2018-11-20] MEDS: LACOSAMIDE 50 MG TABLET PO SCH ×2 (08:28→19:22)
[2018-11-20] MEDS: EZETIMIBE 10 MG TABLET PO SCH (08:28)
[2018-11-20 16:03] VITALS: BP 151/86
[2018-11-20] MEDS: WARFARIN 7.5 MG TABLET. PO SCH (17:07)
[2018-11-20] MEDS: PANTOPRAZOLE 40 MG TABLET. PO SCH (19:22)
[2018-11-20] MEDS: risperiDONE 0.5 MG TABLET. PO SCH (19:23)
--- NOTE | 2018-11-20 22:16 | PDOC ---
Exam Note: Nicholas Note: Please also refer to the separate dictated note~for this date of service dictated separately.~Patient seen individually. Discussed the patient with Nursing staff reviewed the chart.~Reviewed interim history and current functioning. Reviewed vital signs,~Labs/ Radiology~and current medications noted below. Continue current treatment with the changes noted in the dictated addendum note Assessment: Vital Signs/I&O: Vital Signs Date Time Temp Pulse Resp B/P (MAP) Pulse Ox O2 Delivery O2 Flow Rate FiO2 11/20/18 16:03 97.8 85 19 151/86 (107) 97 11/20/18 06:09 Room Air I & O 11/19/18 11/19/18 11/20/18 14:59 22:59 06:59 Intake Total 720 ml 240 ml 120 ml Balance 720 ml 240 ml 120 ml Labs: Laboratory Tests Test 11/20/18 06:50 11/20/18 07:24 11/20/18 11:49 11/20/18 16:43 White Blood Count 3.1 x10^3/uL (4.0-11.0) L Red Blood Count 3.86 x10^6/uL (3.50-5.40) Hemoglobin 11.7 g/dL (12.0-15.5) L Hematocrit 35.3 % (36.0-47.0) L Mean Corpuscular Volume 91 fL (79-100) Mean Corpuscular Hemoglobin 30 pg (25-35) Mean Corpuscular Hemoglobin Concent 33 g/dL (31-37) Red Cell Distribution Width 17.7 % (11.5-14.5) H Platelet Count 177 x10^3/uL (140-400) Neutrophils (%) (Auto) 38 % (31-73) Lymphocytes (%) (Auto) 48 % (24-48) Monocytes (%) (Auto) 7 % (0-9) Eosinophils (%) (Auto) 6 % (0-3) H Basophils (%) (Auto) 1 % (0-3) Neutrophils # (Auto) 1.2 x10^3uL (1.8-7.7) L Lymphocytes # (Auto) 1.5 x10^3/uL (1.0-4.8) Monocytes # (Auto) 0.2 x10^3/uL (0.0-1.1) Eosinophils # (Auto) 0.2 x10^3/uL (0.0-0.7) Basophils # (Auto) 0.0 x10^3/uL (0.0-0.2) Prothrombin Time 18.9 SEC (9.4-11.4) H Prothrombin Time INR 2.0 (0.9-1.1) H Sodium Level 141 mmol/L (136-145) Potassium Level 4.1 mmol/L (3.5-5.1) Chloride Level 104 mmol/L (98-107) Carbon Dioxide Level 29 mmol/L (21-32) Anion Gap 8 (6-14) Blood Urea Nitrogen 13 mg/dL (7-20) Creatinine 1.0 mg/dL (0.6-1.0) Estimated GFR (Cockcroft-Gault) 54.7 BUN/Creatinine Ratio 13 (6-20) Glucose Level 150 mg/dL (70-99) H Calcium Level 8.8 mg/dL (8.5-10.1) Total Bilirubin 0.5 mg/dL (0.2-1.0) Aspartate Amino Transferase (AST) 16 U/L (15-37) Alanine Aminotransferase (ALT) 19 U/L (14-59) Alkaline Phosphatase 67 U/L (46-116) Total Protein 7.0 g/dL (6.4-8.2) Albumin 3.3 g/dL (3.4-5.0) L Albumin/Globulin Ratio 0.9 (1.0-1.7) L Valproic Acid Level 36 mcg/mL (50-100) L Valproic Acid Last Dose Date 11/19/2018 Valproic Acid Last Dose Time 2100 Glucose (Fingerstick) 142 mg/dL (70-99) H 262 mg/dL (70-99) H 180 mg/dL (70-99) H Test 11/20/18 19:10 Glucose (Fingerstick) 246 mg/dL (70-99) H Current Medications: Meds: Current Medications Medications (Trade) Dose Ordered Sig/Alex Route PRN Reason Start Time Stop Time Status Last Admin Dose Admin Divalproex Sodium (Depakote Sprinkles) 375 mg BID PO 11/20/18 21:00 11/20/18 19:23 I have reviewed the current psychotropics carefully including drug interactions. Risk benefit ratio favors no change other than as noted in my dictated progress note. Diagnosis: Problems: (1) Anxiety disorder (2) Impulse control disorder (3) Psychosis, atypical (4) Dementia, vascular, with delusions NETTA WHEELER MD Nov 20, 2018 22:16
--- NOTE | 2018-11-21 00:49 | PN ---
DATE: 11/19/2018 PSYCHIATRIC PROGRESS NOTE This late entry 11/19/2018 covers elements not covered in my initial note. SUBJECTIVE: I met with the patient in the evening. The patient slept 6-1/2 hours previous night. She talked to one of the staff members previous night, talking about people being beheaded and being raped at the hospital. She is persistent and fixed on this as I talked to her individually at length. REVIEW OF SYSTEMS: Ambulation impaired, in wheelchair. No CV, , pulmonary, eye, ENT system symptoms on review. Subperiorbital hematoma is improving. Reliability poor. MENTAL STATUS EXAM: Oriented to herself and situation. Speech has some latency, coherent, low in volume. Abstraction fair, computation impaired, language function intact, attention span short. Mood and affect remain somewhat anxious, remains psychotic. LABORATORY DATA: Reviewed. IMPRESSION: Unchanged from initial note. PLAN: Increase Risperdal from 0.25 mg at bedtime to 0.5 mg p.o. at bedtime. Continue treatment for seizure disorder. Check labs level on the Depakote, adjust to reach therapeutic level. MAN Rebecca WHEELER MD DR: AMARILIS/allan JOB#: [id number] / [id number]
[2018-11-21] MEDS: LEVOTHYROXINE 100 MCG TABLET PO SCH (05:25)
[2018-11-21 06:09] VITALS: BP 142/84
[2018-11-21] MEDS: INSULIN NPH/REG INSULIN 70/30 300 UNITS/3 ML INSULN.PEN. SQ SCH ×2 (08:05→17:00)
[2018-11-21] MEDS: LACOSAMIDE 50 MG TABLET PO SCH ×2 (08:06→20:12)
[2018-11-21] MEDS: CYANOCOBALAMIN (VITAMIN B-12) 1,000 MCG TABLET. PO SCH (08:07)
[2018-11-21] MEDS: WARFARIN 7.5 MG TABLET. PO SCH ×2 (08:07→20:09)
[2018-11-21] MEDS: levETIRAcetam 500 MG TABLET PO SCH ×2 (08:07→20:12)
[2018-11-21] MEDS: DIVALPROEX 125 MG CAP.SPRINK PO SCH ×2 (08:07→20:12)
[2018-11-21] MEDS: CHOLECALCIFEROL (VITAMIN D3) 1,000 UNIT TABLET PO SCH (08:07)
[2018-11-21] MEDS: EZETIMIBE 10 MG TABLET PO SCH (08:08)
[2018-11-21] MEDS: MULTIVITAMIN with MINERAL TABLET. PO SCH (08:08)
[2018-11-21] MEDS: LOSARTAN 50 MG TABLET. PO SCH (08:08)
[2018-11-21] MEDS: MEMANTINE 5 MG TABLET. PO SCH (08:08)
[2018-11-21] MEDS: CETIRIZINE HCL 10 MG TABLET PO SCH (08:09)
[2018-11-21] MEDS ORDERED: INSULIN LISPRO 300 UNITS/3 ML INSULN.PEN. SQ ONE (12:00)
[2018-11-21 16:37] VITALS: BP 163/73
[2018-11-21] MEDS: risperiDONE 0.5 MG TABLET. PO SCH (20:09)
[2018-11-21] MEDS: PANTOPRAZOLE 40 MG TABLET. PO SCH (20:09)
[2018-11-21] MEDS ORDERED: NYSTATIN TOPICAL POWDER 15GM BOTTLE. TP PRN (22:15)
--- NOTE | 2018-11-21 22:41 | PDOC ---
Exam Note: Nicholas Note: Please also refer to the separate dictated note~for this date of service dictated separately.~Patient seen individually. Discussed the patient with Nursing staff reviewed the chart.~Reviewed interim history and current functioning. Reviewed vital signs,~Labs/ Radiology~and current medications noted below. Continue current treatment with the changes noted in the dictated addendum note Assessment: Vital Signs/I&O: Vital Signs Date Time Temp Pulse Resp B/P (MAP) Pulse Ox O2 Delivery O2 Flow Rate FiO2 11/21/18 16:37 98.6 90 20 163/73 (103) 98 11/20/18 06:09 Room Air I & O 11/20/18 11/20/18 11/21/18 15:00 23:00 07:00 Intake Total 480 ml 240 ml 120 ml Balance 480 ml 240 ml 120 ml Labs: Laboratory Tests Test 11/21/18 07:12 11/21/18 11:47 11/21/18 17:14 11/21/18 19:33 Glucose (Fingerstick) 149 mg/dL (70-99) H 305 mg/dL (70-99) H 84 mg/dL (70-99) 157 mg/dL (70-99) H Current Medications: Meds: Current Medications Medications (Trade) Dose Ordered Sig/Alex Route PRN Reason Start Time Stop Time Status Last Admin Dose Admin Cetirizine HCl (ZyrTEC) 10 mg DAILY PO 11/21/18 09:00 11/21/18 08:09 Insulin Human Lispro (HumaLOG) 10 units 1X ONCE SQ 11/21/18 12:00 11/21/18 12:02 DC 11/21/18 12:09 I have reviewed the current psychotropics carefully including drug interactions. Risk benefit ratio favors no change other than as noted in my dictated progress note. Diagnosis: Problems: (1) Anxiety disorder (2) Impulse control disorder (3) Psychosis, atypical (4) Dementia, vascular, with delusions NETTA WHEELER MD Nov 21, 2018 22:41
--- NOTE | 2018-11-22 00:11 | CONS ---
DATE OF CONSULTATION: 11/17/2018 REFERRING PHYSICIAN: Vincent Mancia MD REASON FOR CONSULTATION: History of seizure, status post fall. HISTORY OF PRESENT ILLNESS: This is a 73-year-old right-handed female who was transferred on 11/15/2018 from [facility] in [place] on account of behavior disturbances and agitation. The patient was admitted to [facility] on 11/15/2018. Neuro consult was requested because the patient had fallen in the bathroom at home and had closed head injuries resulted in multiple facial ecchymosis. The patient has had history of seizure disorder described as generalized tonic-clonic seizure. The first seizure was in 04/2013 secondary to stroke. The patient stated she lost her consciousness. She would have 2-3 seizures yearly. The last seizure was in 07/2018. This information was obtained directly from the patient. According to the patient, she fell in the bathroom at home. The fall resulted in closed head injuries and nasal fracture along with hematomas and multiple facial ecchymosis. The patient did not lose consciousness. Initial nonenhanced head CT scan revealed no evidence of intracranial bleed. The patient has been on Coumadin for factor V Leiden deficiency and her INR was 3.4. Currently, the patient complains of intermittent headaches. She denies visual disturbances, nausea, chest pain, shortness of breath, or palpitations. PAST MEDICAL HISTORY: Significant for major depression, dementia, diabetes mellitus type 2, factor V Leiden deficiency with long-term anticoagulation with warfarin, history of DVT, pulmonary embolism, hypertension, hyperlipidemia, hypothyroidism, obstructive sleep apnea, seizure disorder as described above, sigmoid diverticulosis and stroke in 2012. PAST SURGICAL HISTORY: Significant for nasal septal surgery, cholecystectomy, tubal ligation, partial thyroidectomy and rotator cuff repair. SOCIAL HISTORY: The patient denies smoking, alcohol drinking, or illicit drug use. FAMILY HISTORY: Positive for diabetes mellitus, heart disease and dementia affecting her sister. Mother had heart disease, heart failure, hypertension and father had hypertension. CURRENT HOME MEDICATIONS: Keppra, Vimpat, Zetia, Depakote, Voltaren, vitamin B12, Tylenol, losartan, Synthroid, Namenda, multivitamin, Zyprexa, Protonix, vitamin D, and Coumadin. ALLERGIES: THE PATIENT IS ALLERGIC TO LATEX, CRANBERRY AND GRAPEFRUIT EXTRACT, MORPHINE, ZOCOR, LANTUS INSULIN, ACTOS. REVIEW OF SYSTEMS: A 10-point review of system was performed as mentioned above in history of present illness. PHYSICAL EXAMINATION: GENERAL: Well-developed, well-nourished female, not in acute distress. She weighs 99 kilos. VITAL SIGNS: Afebrile, blood pressure 133/81, respiratory rate 16, pulse is 75 and regular, temperature 97.5, oxygen saturation 94% on room air. HEENT: Normocephalic, atraumatic. The patient has bilateral orbital ecchymosis from recent injuries and fall and also she had multiple facial ecchymosis. NECK: Supple. Negative for carotid bruit, lymphadenopathy or thyromegaly. LUNGS: Clear to A and P. CARDIOVASCULAR: Regular rhythm, normal S1, S2. There is no S3, S4 or murmur. ABDOMEN: Soft. Bowel sounds positive. EXTREMITIES: Negative for cyanosis, but has 2+ pitting edema bilaterally. NEUROLOGIC: MENTAL STATUS: The patient is alert and oriented x 3. The speech is fluent. There is no language dysfunction. Memory, judgment, and abstract thinking are fair. The patient denies hallucination or delusion. CRANIAL NERVES: Visual huizar are full. The pupils are reactive to light and accommodation. The extraocular movements are intact. There is no nystagmus. There is no facial motor or sensory deficit. Hearing appeared to be diminished, likely bilaterally. The palate is elevated symmetrically. Sternocleidomastoid muscles are powerful bilaterally. The patient shrugs her shoulders symmetrically, protrudes her tongue in the midline without fasciculation or atrophy. MOTOR: No focal muscle bulk was seen. The tone is normal. The strength is 4/5 throughout. SENSORY EXAMINATION: Revealed diminished pinprick and light touch senses in patchy distributions in both lower extremities. Deep tendon reflexes were symmetric and hypoactive with absent Achilles responses. Gait is normal. LABORATORY DATA: CBC revealed white blood cells of 3.3 thousand, hemoglobin 11.9, hematocrit 36.1, platelet count 169. Chemistry revealed normal lipid profile and elevated TSH 6.6 with normal T4 and T3. Urinalysis is negative for urinary tract infections. IMPRESSION: 1. Status post fall at home resulted in close head injury and possible nasal fracture and multiple facial ecchymosis including bilateral orbits. 2. Long-term anticoagulation therapy due to previous DVT and pulmonary embolism with current elevated INR at 3.[address] scan for intracranial bleed. The patient has been on anticoagulation therapy for factor V Leiden deficiency. 3. History of stroke without significant focal residuals. 4. Multiple medical problems include diabetes mellitus type 2, hypertension, hypothyroidism, long history of dementia. 5. Multiple psychiatric problems include depressions, anxiety, and behavior disturbances. 6. History of seizure disorder. The patient has been on multiple anticonvulsant including Vimpat and Keppra. RECOMMENDATIONS: 1. Continue with current anticonvulsant. 2. Treat the underlying multiple medical and psychiatric care. 3. We will discontinue Voltaren as the patient has elevated INR and high risk for intracranial bleed in conjunction with Coumadin. M William RYAN MD DR: JAMARCUS/allan JOB#: [id number] / [id number]
[2018-11-22 06:06] VITALS: BP 138/86
[2018-11-22] MEDS: LEVOTHYROXINE 100 MCG TABLET PO SCH (06:14)
[2018-11-22] MEDS: LOSARTAN 50 MG TABLET. PO SCH (10:41)
[2018-11-22] MEDS: MULTIVITAMIN with MINERAL TABLET. PO SCH (10:41)
[2018-11-22] MEDS: INSULIN NPH/REG INSULIN 70/30 300 UNITS/3 ML INSULN.PEN. SQ SCH ×2 (10:41→17:17)
[2018-11-22] MEDS: MEMANTINE 5 MG TABLET. PO SCH (10:41)
[2018-11-22] MEDS: levETIRAcetam 500 MG TABLET PO SCH ×2 (10:41→20:28)
[2018-11-22] MEDS: CHOLECALCIFEROL (VITAMIN D3) 1,000 UNIT TABLET PO SCH (10:41)
[2018-11-22] MEDS: EZETIMIBE 10 MG TABLET PO SCH (10:42)
[2018-11-22] MEDS: CETIRIZINE HCL 10 MG TABLET PO SCH (10:42)
[2018-11-22] MEDS: CYANOCOBALAMIN (VITAMIN B-12) 1,000 MCG TABLET. PO SCH (10:42)
[2018-11-22] MEDS: DIVALPROEX 125 MG CAP.SPRINK PO SCH ×2 (10:42→20:27)
[2018-11-22] MEDS: LACOSAMIDE 50 MG TABLET PO SCH ×2 (10:44→20:28)
[2018-11-22 15:46] VITALS: BP 152/75
[2018-11-22] MEDS ORDERED: WARFARIN 5 MG TABLET. PO ONE (16:00)
[2018-11-22] MEDS: PANTOPRAZOLE 40 MG TABLET. PO SCH (20:27)
[2018-11-22] MEDS: risperiDONE 0.5 MG TABLET. PO SCH (20:29)
[2018-11-22] MEDS: NYSTATIN TOPICAL POWDER 15GM BOTTLE. TP SCH (20:30)
--- NOTE | 2018-11-22 22:15 | PDOC ---
Exam Note: Nicholas Note: Please also refer to the separate dictated note~for this date of service dictated separately.~Patient seen individually. Discussed the patient with Nursing staff reviewed the chart.~Reviewed interim history and current functioning. Reviewed vital signs,~Labs/ Radiology~and current medications noted below. Continue current treatment with the changes noted in the dictated addendum note Assessment: Vital Signs/I&O: Vital Signs Date Time Temp Pulse Resp B/P (MAP) Pulse Ox O2 Delivery O2 Flow Rate FiO2 11/22/18 15:46 98.1 69 18 152/75 (100) 94 Room Air I & O 11/21/18 11/21/18 11/22/18 15:00 23:00 07:00 Intake Total 680 ml 360 ml 120 ml Balance 680 ml 360 ml 120 ml Labs: Laboratory Tests Test 11/22/18 06:37 11/22/18 07:16 11/22/18 11:50 11/22/18 16:44 Prothrombin Time 27.9 SEC (9.4-11.4) H Prothrombin Time INR 2.9 (0.9-1.1) H Glucose (Fingerstick) 225 mg/dL (70-99) H 271 mg/dL (70-99) H 270 mg/dL (70-99) H Test 11/22/18 19:31 Glucose (Fingerstick) 317 mg/dL (70-99) H Current Medications: Meds: Current Medications Medications (Trade) Dose Ordered Sig/Alex Route PRN Reason Start Time Stop Time Status Last Admin Dose Admin Warfarin Sodium (Coumadin) 5 mg 1X WARF ONCE PO 11/22/18 16:00 11/22/18 16:01 DC 11/22/18 17:15 Nystatin (Nystop) 1 leandro BID TP 11/22/18 21:00 11/22/18 20:30 Insulin Human Isoph/Insulin Regular (HumuLIN 70/30) 20 units TIDWMEALS SQ 11/22/18 17:00 11/22/18 17:17 I have reviewed the current psychotropics carefully including drug interactions. Risk benefit ratio favors no change other than as noted in my dictated progress note. Diagnosis: Problems: (1) Anxiety disorder (2) Impulse control disorder (3) Psychosis, atypical (4) Dementia, vascular, with delusions NETTA WHEELER MD Nov 22, 2018 22:15
--- NOTE | 2018-11-22 22:18 | PN ---
DATE: 11/20/2018 PSYCHIATRIC PROGRESS NOTE This is a late entry 11/20/2018, covers the elements not covered in my initial note. SUBJECTIVE: I met with the patient in the evening. The patient slept 7-1/4 hours previous night. She did well the previous night, had a good day. Her visited during the day on 11/20/2018 and she was quite irritable after this. She is fixated on why her closet was locked and still paranoid that people are being killed and raped, but less intense. REVIEW OF SYSTEMS: Ambulation impaired, in wheelchair. No CV, , pulmonary, eye, ENT system symptoms on review. MENTAL STATUS EXAM: Oriented to herself and situation. Speech is coherent, abstraction fair, computation impaired, language function intact, attention span short. Mood and affect remains labile. She is reasonably oriented. LABORATORY DATA: Reviewed. IMPRESSION: Psychotic disorder, unspecified; possible bipolar 1 disorder, mixed with psychotic features, mild cognitive impairment; anxiety disorder, unspecified. PLAN: Valproic acid level is subtherapeutic and we will increase the Depakote from 250 b.i.d. to 375 mg b.i.d. Check CBC, CMP, valproic acid level, ammonia level in 3 days. Continue rest of the psychotropics unchanged. NETTA WHEELER MD DR: AMARILIS/allan JOB#: [id number] / [id number]
--- NOTE | 2018-11-22 22:53 | PN ---
DATE: 11/21/2018 PSYCHIATRIC PROGRESS NOTE This late entry of 11/21/2018 covers the elements not covered in my initial note. SUBJECTIVE: I met with the patient in the evening at length and staffed a treatment team meeting with the entire team in the morning. The patient slept 7 hours. Appetite 75%. She is little more cooperative. Complains of pain in the thumb, impaired ambulation, in wheelchair. No CV, , pulmonary, eye system symptoms on review. She is paranoid regarding her having an affair at the end of the driveway. Social service staff has checked this with the family and family is quite clear that this is not anything but the patient's delusion. The patient had some very specific situations where she felt her had an affair. She is irritable at times. We reviewed her CT head. REVIEW OF SYSTEMS: Ambulation impaired, in wheelchair. No CV, , pulmonary, eye, ENT system symptoms on review. MENTAL STATUS EXAM: Oriented to herself and situation. Speech coherent, less pressured. Abstraction fair, computation impaired, language function intact, attention span short. Mood and affect remain somewhat anxious, labile, paranoid, but better than before. LABORATORY DATA: Reviewed. IMPRESSION: Probable bipolar 1 disorder, mixed with psychotic features; psychotic disorder, unspecified; mild cognitive impairment. CT head shows microvascular changes with some atrophy, nothing significant. No acute changes. PLAN: Continue Depakote 250 b.i.d. Check labs level on the valproic acid, adjust to reach a therapeutic level. She continues on treatment for seizure disorder. Risperdal is at 0.5 mg p.o. at bedtime, Zyprexa was stopped. Adjust further as clinically indicated. MAN Rebecca WHEELER MD DR: AMARILIS/allan JOB#: [id number] / [id number]
--- NOTE | 2018-11-23 01:27 | PN ---
DATE: 11/22/2018 PSYCHIATRIC PROGRESS NOTE This note covers elements not covered in my initial note 11/22/2018. SUBJECTIVE: I met with the patient in the evening. Overall, the patient slept 5-3/4 hours previous night. She had a telephone conversation with the daughter, has been staying around another demented patient who is fairly organized. Insulin dose was changed per Dr. Trevino. She has not talked about people being raped or killed and I pressured her to discuss this with me at length individually and she stated "I am over that." REVIEW OF SYSTEMS: Ambulation impaired, in wheelchair. No CV, , pulmonary, eye system symptoms on review. MENTAL STATUS EXAM: Oriented to herself and situation. Speech is coherent, less pressured. Abstraction fair, computation impaired, language function intact, attention span short. Mood and affect remain somewhat anxious, labile, but better than before. LABORATORY DATA: Reviewed. IMPRESSION: Unchanged from initial note. PLAN: No change from initial note. MAN Rebecca WHEELER MD DR: AMARILIS/allan JOB#: [id number] / [id number]
[2018-11-23 06:05] VITALS: BP 146/87
[2018-11-23] MEDS: LEVOTHYROXINE 100 MCG TABLET PO SCH (06:15)
[2018-11-23 08:29] LABS: BASO % 1 % (0-3); EOS # 0.2 x10^3/uL (0.0-0.7); EOS % 7 % (0-3); HEMATOCRIT 38.1 % (36.0-47.0); HEMOGLOBIN 12.4 g/dL (12.0-15.5); LYMPH # 1.4 x10^3/uL (1.0-4.8); LYMPH % 52 % (24-48); MEAN CORPUSCULAR HEMOGLOBIN 30 pg (25-35); MEAN CORPUSCULAR HGB CONC 33 g/dL (31-37); MEAN CORPUSCULAR VOLUME 93 fL (79-100); MONO # 0.2 x10^3/uL (0.0-1.1); MONO % 6 % (0-9); NEUT % 34 % (31-73); PLATELET COUNT 179 x10^3/uL (140-400); RED BLOOD COUNT 4.12 x10^6/uL (3.50-5.40); RED CELL DISTRIBUTION WIDTH 17.9 % (11.5-14.5); WHITE BLOOD COUNT 2.8 x10^3/uL (4.0-11.0)
[2018-11-23 08:44] LABS: ALBUMIN 3.5 g/dL (3.4-5.0); ALBUMIN/GLOBULIN RATIO 0.9 (1.0-1.7); ALK PHOS 77 U/L (46-116); ALT (SGPT) 20 U/L (14-59); ANION GAP 10 (6-14); AST (SGOT) 15 U/L (15-37); BLOOD UREA NITROGEN 15 mg/dL (7-20); BUN/CREATININE RATIO 15 (6-20); CALCIUM 9.2 mg/dL (8.5-10.1); CARBON DIOXIDE 28 mmol/L (21-32); CHLORIDE 104 mmol/L (98-107); GFR 54.7; GLUCOSE 197 mg/dL (70-99); POTASSIUM 4.2 mmol/L (3.5-5.1); SODIUM 142 mmol/L (136-145); TOTAL BILIRUBIN 0.4 mg/dL (0.2-1.0); TOTAL PROTEIN 7.3 g/dL (6.4-8.2)
[2018-11-23 08:50] LABS: VAL ACID 49 mcg/mL (50-100)
[2018-11-23] MEDS: INSULIN NPH/REG INSULIN 70/30 300 UNITS/3 ML INSULN.PEN. SQ SCH ×3 (09:22→18:28)
[2018-11-23] MEDS: CHOLECALCIFEROL (VITAMIN D3) 1,000 UNIT TABLET PO SCH (10:03)
[2018-11-23] MEDS: MULTIVITAMIN with MINERAL TABLET. PO SCH (10:03)
[2018-11-23] MEDS: EZETIMIBE 10 MG TABLET PO SCH (10:03)
[2018-11-23] MEDS: DIVALPROEX 125 MG CAP.SPRINK PO SCH ×2 (10:04→21:02)
[2018-11-23] MEDS: LOSARTAN 50 MG TABLET. PO SCH (10:04)
[2018-11-23] MEDS: levETIRAcetam 500 MG TABLET PO SCH ×2 (10:04→21:03)
[2018-11-23] MEDS: MEMANTINE 5 MG TABLET. PO SCH (10:04)
[2018-11-23] MEDS: CYANOCOBALAMIN (VITAMIN B-12) 1,000 MCG TABLET. PO SCH (10:04)
[2018-11-23] MEDS: CETIRIZINE HCL 10 MG TABLET PO SCH (10:04)
[2018-11-23] MEDS: NYSTATIN TOPICAL POWDER 15GM BOTTLE. TP SCH ×2 (10:05→21:03)
[2018-11-23] MEDS: LACOSAMIDE 50 MG TABLET PO SCH ×2 (10:06→21:02)
[2018-11-23 15:34] VITALS: BP 138/81
[2018-11-23] MEDS: PANTOPRAZOLE 40 MG TABLET. PO SCH (21:02)
[2018-11-23] MEDS: risperiDONE 0.5 MG TABLET. PO SCH (21:02)
[2018-11-24] MEDS: LEVOTHYROXINE 100 MCG TABLET PO SCH (04:55)
[2018-11-24 06:24] VITALS: BP 154/85
[2018-11-24] MEDS: DIVALPROEX 125 MG CAP.SPRINK PO SCH ×2 (08:24→20:22)
[2018-11-24] MEDS: CYANOCOBALAMIN (VITAMIN B-12) 1,000 MCG TABLET. PO SCH (08:24)
[2018-11-24] MEDS: CHOLECALCIFEROL (VITAMIN D3) 1,000 UNIT TABLET PO SCH (08:24)
[2018-11-24] MEDS: levETIRAcetam 500 MG TABLET PO SCH ×2 (08:24→20:22)
[2018-11-24] MEDS: MULTIVITAMIN with MINERAL TABLET. PO SCH (08:24)
[2018-11-24] MEDS: CETIRIZINE HCL 10 MG TABLET PO SCH (08:24)
[2018-11-24] MEDS: MEMANTINE 5 MG TABLET. PO SCH (08:25)
[2018-11-24] MEDS: EZETIMIBE 10 MG TABLET PO SCH (08:25)
[2018-11-24] MEDS: LOSARTAN 50 MG TABLET. PO SCH (08:25)
[2018-11-24] MEDS: INSULIN NPH/REG INSULIN 70/30 300 UNITS/3 ML INSULN.PEN. SQ SCH ×3 (08:30→17:26)
[2018-11-24] MEDS: NYSTATIN TOPICAL POWDER 15GM BOTTLE. TP SCH ×2 (08:32→20:27)
[2018-11-24] MEDS: LACOSAMIDE 50 MG TABLET PO SCH ×2 (08:32→20:27)
--- NOTE | 2018-11-24 10:58 | PN ---
DATE: 11/23/2018 SUBJECTIVE: The patient was seen today, met with the staff, chart reviewed. Staff reports no major problems except he tend to hold collect things. The patient also has a history of recent falls. The patient still has some bruises on his body. The patient also is refusing his medications at times. OBSERVATION: VITAL SIGNS: Temperature 97.7, blood pressure 146/87, pulse 88, respirations 18, O2 sat 96%. Slept about 5 hours last night. The patient's appetite is fair. MEDICATIONS: The patient currently not presenting with any major medical issues. The patient's medications reviewed. Depakote 375 mg b.i.d., Risperdal 0.5 mg at night, Namenda 5 mg daily. He is also on Keppra 500 mg b.i.d. The patient is not having any side effects. The patient's lab reviewed. The patient's white cell count of 2.8. The patient's glucose level was 129 today. ASSESSMENT: 1. Major neurocognitive disorder, most likely vascular with delusions and depression. 2. Anxiety disorder, unspecified. 3. History of seizures and also confusion. PLAN: To continue with the treatment. BEENA CREWS MD DR: CHI/allan JOB#: [id number] / [id number]
[2018-11-24] MEDS ORDERED: WARFARIN 6 MG TABLET. PO ONE (16:00)
[2018-11-24 17:05] VITALS: BP 142/92
[2018-11-24] MEDS: PANTOPRAZOLE 40 MG TABLET. PO SCH (20:22)
[2018-11-24] MEDS: risperiDONE 0.5 MG TABLET. PO SCH (20:22)
[2018-11-24] MEDS: ACETAMINOPHEN 325 MG TABLET PO PRN (21:27)
--- NOTE | 2018-11-25 01:45 | PN ---
DATE: 11/24/2018 SUBJECTIVE: The patient was seen today, met with the staff, chart reviewed and also covering for Dr. Mancia. The patient has still slow unsteady gait, history of falls, still has some bruises on her forehead and below eyes. The patient is currently on wheelchair. OBSERVATION: VITAL SIGNS: Temperature 98.7, blood pressure 154/85, pulse 81, respirations 20, O2 sat 98%. Slept about 7 hours last night. The patient's appetite has improved. MEDICATIONS: The patient's current medications include Depakote 375 mg b.i.d., Risperdal 0.5 mg at night, Namenda 5 mg daily. The patient is also on Keppra 500 mg b.i.d. and not having any side effects. LABORATORY DATA: The patient's lab reviewed. The patient's white cell count is low, 2.8. ASSESSMENT: 1. Major neurocognitive disorder, most likely vascular with delusions and depression. 2. Anxiety disorder, unspecified. 3. History of seizure disorder and also episodic confusion. PLAN: Continue with the current treatment. LENGTH OF STAY: 5-10 days. BEENA CREWS MD DR: CHI/allan JOB#: [id number] / [id number]
[2018-11-25] MEDS: LEVOTHYROXINE 100 MCG TABLET PO SCH (05:17)
[2018-11-25 06:20] VITALS: BP 158/89
[2018-11-25] MEDS: CETIRIZINE HCL 10 MG TABLET PO SCH (08:46)
[2018-11-25] MEDS: EZETIMIBE 10 MG TABLET PO SCH (08:46)
[2018-11-25] MEDS: levETIRAcetam 500 MG TABLET PO SCH (08:47)
[2018-11-25] MEDS: NYSTATIN TOPICAL POWDER 15GM BOTTLE. TP SCH (08:47)
[2018-11-25] MEDS: LOSARTAN 50 MG TABLET. PO SCH (08:47)
[2018-11-25] MEDS: DIVALPROEX 125 MG CAP.SPRINK PO SCH (08:47)
[2018-11-25] MEDS: CHOLECALCIFEROL (VITAMIN D3) 1,000 UNIT TABLET PO SCH (08:47)
[2018-11-25] MEDS: MEMANTINE 5 MG TABLET. PO SCH (08:47)
[2018-11-25] MEDS: CYANOCOBALAMIN (VITAMIN B-12) 1,000 MCG TABLET. PO SCH (08:47)
[2018-11-25] MEDS: LACOSAMIDE 50 MG TABLET PO SCH (08:47)
[2018-11-25] MEDS: MULTIVITAMIN with MINERAL TABLET. PO SCH (08:47)
[2018-11-25] MEDS: INSULIN NPH/REG INSULIN 70/30 300 UNITS/3 ML INSULN.PEN. SQ SCH ×2 (08:50→13:21)
[2018-11-25] MEDS ORDERED: CETI10TA22 PO (12:07)
[2018-11-25] MEDS ORDERED: DIVA125C2 PO (12:24)
[2018-11-25] MEDS ORDERED: RISP0.5T24 PO (12:29)
[2018-11-25] MEDS ORDERED: NYST15OI TP (12:35)
[2018-11-25] MEDS ORDERED: NYST60PO TP (12:42)
[2018-11-25] MEDS ORDERED: MAG30ORA2 PO (12:45)
[2018-11-25] MEDS ORDERED: METH113. TP (12:48)
[2018-11-25] MEDS ORDERED: WARF7.5T45 PO (13:07)
[2018-11-25] MEDS ORDERED: WARFARIN 7.5 MG TABLET. PO ONE (14:00)
--- NOTE | 2018-11-25 14:10 | RAD ---
3 view study of the right hand Clinical indications: Pain after a fall in the first metacarpal region. FINDINGS: Sesamoid bone of the first metacarpal phalangeal joint area appears fragmented and therefore may be fractured. No other acute fracture or dislocation or lytic process is evident. 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 IMPRESSION: The sesamoid bone of the first metacarpal phalangeal joint area appears fragmented and therefore may be fractured. Electronically signed by: Zaire Reagan MD (11/25/2018 2:08 PM) [id number]
[2018-11-25 16:33] VITALS: BP 178/90
--- NOTE | 2018-11-25 21:17 | DS ---
DATE OF DISCHARGE: 11/25/2018 FINAL DIAGNOSES: AXIS I: 1. Psychotic disorder, unspecified; major neurocognitive disorder vascular with delusions. 2. Depression. 3. Anxiety disorder, unspecified. 4. Impulse control disorder, unspecified; also status post cerebrovascular accident. AXIS II: None AXIS III: Type 2 diabetes mellitus, factor V Leiden mutation, asthma, hearing loss, hypertension, hyperlipidemia, hypothyroidism, sleep apnea, peptic ulcer disease, seizure disorder and history of DVT and pulmonary embolism. REASON FOR ADMISSION: This 73-year-old female who was [facility] from [facility] in [place], [place]. The patient apparently was a resident at [facility]. Apparently, there was some brief stay and she started experiencing major behavior problems including anger, agitation, aggression and delusions. She thought that people's heads were being cut off and put on plate. She was threatening to cut her friend's throat and she was striking at the staff, became very aggressive, increased confusion. Apparently, the staff had to call the police for assistance due to dangerous behaviors and being out of control. Apparently, then she was sent to the Emergency Room at [facility]. The patient has been on psychotropics, all of which had failed. CHIEF COMPLAINT: "Yes, they are cutting off the heads, I heard him talking about it". HISTORY OF PRESENT ILLNESS: The patient has history of psychotic symptoms including auditory and questionable visual hallucinations, sleep problems, appetite disturbances and the patient's behavior has been unmanageable and dangerous. The patient apparently also was beginning to show significant cognitive deficits. The patient apparently has no major psychiatric diagnosis in the past except for memory problems. HOSPITAL COURSE: The patient had a physical exam, routine lab work including CBC, chem profile, urinalysis, which were all within normal range except for a WBC count of 2.8 and the level on admission was 3.3. The patient's neutrophil count was 34. Lymphocyte count was 52, which was high. The patient's blood sugar was slightly elevated. The patient's other electrolytes were within normal range. The patient's lipid profile was within normal range. The patient's TSH was 6.6. The patient was involved in the program including individual therapy, group therapy, and activity therapy. The patient apparently had multiple falls prior to coming here. She also had bruising on her face. The patient's lab remains the same. No change at the time of discharge. The patient's medications included insulin 20 units t.i.d., Zyrtec 10 mg daily, Depakote 375 mg b.i.d., Risperdal 0.5 mg at night, Namenda 5 mg daily, Zetia 10 mg daily, losartan 50 mg daily, vitamin B12 1000 mcg daily, levothyroxine 200 mcg daily, Protonix 40 mg daily, Keppra 500 mg b.i.d. The patient did fairly well. The patient is still slow to respond to questions, but less confusion. AFTERCARE PLAN: This patient at the time of discharge medically stable, not expressing any overt psychotic symptoms, not admitting to having any major depressive symptoms, no suicidal or homicidal thoughts. The patient also is not exhibiting any side effects of the medications. The patient will be returning home to her family. Apparently, she will be seen by her primary care doctor for followup. The patient will continue on the medication listed above. Patient was on two antipsychotic drugs. Zyprexa and Risperdal. Recommend decreasing Zyprexa to 2.5 mg daily PO and discontinuue if possible. BEENA CREWS MD DR: CHI/allan JOB#: [id number] / [id number] ADAMARIS
== END 2018-11-25 16:45 | disposition home or self-care (01) | DRG 57 ==
LOC: GEROPSY 13:07
PROVIDERS: ADMIT Psychiatry & Neurology Psychiatry; ATTEND Psychiatry & Neurology Psychiatry
DX: G30.9 Alzheimer's disease, unspecified (principal); F31.64 Bipolar disorder, current episode mixed, severe, with psychotic features; D68.51 Activated protein C resistance; E89.0 Postprocedural hypothyroidism; E78.5 Hyperlipidemia, unspecified; E11.9 Type 2 diabetes mellitus without complications; F02.80 Dementia in other diseases classified elsewhere, unspecified severity, without behavioral disturbance, psychotic disturbance, mood disturbance, and anxiety; F01.50 Vascular dementia, unspecified severity, without behavioral disturbance, psychotic disturbance, mood disturbance, and anxiety; F41.9 Anxiety disorder, unspecified; R29.6 Repeated falls; F63.9 Impulse disorder, unspecified; G40.409 Other generalized epilepsy and epileptic syndromes, not intractable, without status epilepticus; G47.33 Obstructive sleep apnea (adult) (pediatric); I10 Essential (primary) hypertension; K57.30 Diverticulosis of large intestine without perforation or abscess without bleeding; S02.2XXA Fracture of nasal bones, initial encounter for closed fracture; S00.83XA Contusion of other part of head, initial encounter; J45.909 Unspecified asthma, uncomplicated; W18.39XA Other fall on same level, initial encounter; Z86.73 Personal history of transient ischemic attack (TIA), and cerebral infarction without residual deficits; Z79.01 Long term (current) use of anticoagulants; Z79.4 Long term (current) use of insulin; Z83.3 Family history of diabetes mellitus; Z79.899 Other long term (current) drug therapy; Z82.49 Family history of ischemic heart disease and other diseases of the circulatory system; Z86.19 Personal history of other infectious and parasitic diseases; Z86.711 Personal history of pulmonary embolism; Z86.718 Personal history of other venous thrombosis and embolism; Z87.11 Personal history of peptic ulcer disease; Z87.891 Personal history of nicotine dependence; Z91.14 Patient's other noncompliance with medication regimen; Z91.81 History of falling; Z98.51 Tubal ligation status; Z91.040 Latex allergy status; Z88.5 Allergy status to narcotic agent; Z88.8 Allergy status to other drugs, medicaments and biological substances; Z91.018 Allergy to other foods; Y93.89 Activity, other specified; Y92.091 Bathroom in other non-institutional residence as the place of occurrence of the external cause; Y99.8 Other external cause status; Z90.49 Acquired absence of other specified parts of digestive tract
CPT/HCPCS: 36415; 73130; 80053; 80061; 80164; 81001; 82140; 82306; 82947; 83036; 83540; 83550; 83735; 84436; 84443; 84480; 85025; 85610; 86592; 93005; J1815